=== PATIENT | female | born 1975 | race Caucasian/White ===

== ENCOUNTER 2017-03-28 06:55 | Day surgery (SDC) | payer MEDICAID ==
[~2017-03-28] VITALS: Ht 165.1 cm; Wt 74.5 kg
[~2017-03-28 06:55] MED LIST: ALBU8.5H3 HOMEINH; ESOM40CA PO; GLIM4TAB2 PO; IPRA4AER HOMEINH; METF100010 PO; PRAM1TAB5 PO; ZOLP5TAB6 PO
[2017-03-28] MEDS ORDERED: DOXYCYCLINE 100 MG in DEXTROSE 5% 250 ML IV ONE (08:30)
[2017-03-28] MEDS ORDERED: PLEASE ENTER HEIGHT AND WEIGHT MC SCH (08:30)
[2017-03-28] MEDS ORDERED: LACTATED RINGERS 1,000 ML IV SCH (08:39)
[2017-03-28 08:50] LABS: BLOOD UREA NITROGEN 13 mg/dL (7-18)
[2017-03-28 08:50] LABS: HCG UR OBC PASS
[2017-03-28 08:53] LABS: ASPARTATE AMINO TRANSFERASE 10 U/L (15-37)
[2017-03-28] MEDS ORDERED: INSULIN SINGLE DOSE, ER SQ-INSULIN ONE (09:05)
[2017-03-28 09:12] VITALS: BP 118/80
[2017-03-28] MEDS ORDERED: INSULIN REGULAR 100 UNITS/ML, 3ML VIAL SQ-INSULIN ONE (09:30)
[2017-03-28 09:35] LABS: DAU SCREEN DISCLAIMER
[2017-03-28] MEDS ORDERED: BUPIVACAINE/PF-EPI 0.25% 1:200K ONE (10:29)
[2017-03-28] MEDS ORDERED: PROPOFOL 10 MG/ML, 20ML ONE (10:40)
[2017-03-28] MEDS ORDERED: DOXYCYCLINE 100 MG ONE (10:40)
[2017-03-28] MEDS ORDERED: ONDANSETRON 2MG/ML, 2ML ONE (10:40)
[2017-03-28] MEDS ORDERED: MIDAZOLAM 1 MG/ML, 2ML ONE (10:41)
[2017-03-28] MEDS ORDERED: FENTANYL PF 250 MCG/5ML ONE (10:41)
[2017-03-28] MEDS ORDERED: LABETALOL 5MG/ML, 20ML IV PRN (11:30)
[2017-03-28] MEDS ORDERED: HYDROmorphone 1 MG/ML, 1ML IV PRN (11:30)
[2017-03-28] MEDS ORDERED: hydrALAzine 20 MG/ML, 1ML IV PRN (11:30)
[2017-03-28] MEDS ORDERED: EPHEDRINE 50 MG/ML, 1ML IVPush PRN (11:30)
[2017-03-28] MEDS ORDERED: MEPERIDINE/PF 25MG/0.5ML IVPush PRN (11:30)
[2017-03-28] MEDS ORDERED: METOCLOPRAMIDE 5 MG/ML, 2ML IV PRN (11:30)
[2017-03-28] MEDS ORDERED: OXYcodone 5 MG/5 ML ORAL.SOL UDC PO PRN (11:30)
[2017-03-28] MEDS ORDERED: FENTANYL PF 100 MCG/2ML IV PRN (11:30)
[2017-03-28] MEDS ORDERED: PROMETHAZINE 25 MG/ML, 1ML IV PRN (11:30)
[2017-03-28] MEDS ORDERED: HYDROcodone/APAP 7.5-325MG/15ML UDC PO PRN (11:30)
[2017-03-28] MEDS ORDERED: MIDAZOLAM 1 MG/ML, 2ML IV PRN (11:30)
[2017-03-28] MEDS ORDERED: ONDANSETRON 2MG/ML, 2ML IVPush PRN (11:30)
[2017-03-28] MEDS ORDERED: OXYcodone 5 MG/5 ML ORAL.SOL UDC ONE (12:08)
[2017-03-28] MEDS ORDERED: FENTANYL PF 100 MCG/2ML ONE (12:08)
[2017-03-28] MEDS ORDERED: NITROFURANTOIN (MACROBID) 100 MG CAPSULE PO ONE ×2 (13:00)
== END 2017-03-28 14:15 | disposition home or self-care (01) ==
LOC: OUT 06:55
PROVIDERS: ATTEND Student in an Organized Health Care Education/Training Program
DX: N92.0 Excessive and frequent menstruation with regular cycle (principal); I10 Essential (primary) hypertension; E11.9 Type 2 diabetes mellitus without complications; J45.909 Unspecified asthma, uncomplicated; J44.9 Chronic obstructive pulmonary disease, unspecified; F41.9 Anxiety disorder, unspecified; Z98.51 Tubal ligation status; F17.210 Nicotine dependence, cigarettes, uncomplicated; N39.0 Urinary tract infection, site not specified; K21.9 Gastro-esophageal reflux disease without esophagitis; G47.33 Obstructive sleep apnea (adult) (pediatric); Z88.0 Allergy status to penicillin; Z88.2 Allergy status to sulfonamides; Z88.3 Allergy status to other anti-infective agents; Z88.6 Allergy status to analgesic agent; Z88.8 Allergy status to other drugs, medicaments and biological substances; Z79.84 Long term (current) use of oral hypoglycemic drugs; Z79.899 Other long term (current) drug therapy
CPT/HCPCS: 36415; 58563; 71010; 80053; 80307; 81001; 81025; 82962; 85025; 86850; 86900; 87086; 88305; 93005; J2250; J2405; J2704; J3010; J7120; 87077; 87186